=== PATIENT | male | born 1945 | race Caucasian/White ===

== ENCOUNTER → 2020-05-17 11:16 | Outpatient (CLI) | payer MEDICARE, SELFPAY ==
[2020-05-17 12:10] VITALS: PULSE 83; PULSE 86
== END ==
PROVIDERS: PCP Internal Medicine; Visit Provider Orthopaedic Surgery
DX: J44.9 Chronic obstructive pulmonary disease, unspecified (principal)
CPT/HCPCS: 94060; 94640